=== PATIENT | male | born 1975 | race Caucasian/White ===

== ENCOUNTER 2018-12-09 20:43 | Emergency (ER) | payer OTHER ==
[~2018-12-09] VITALS: Ht 182.9 cm; Wt 97.5 kg
[2018-12-09] MEDS ORDERED: VENTOLIN HFA 1818 GM INH (21:39)
[2018-12-09] MEDS ORDERED: PREDNISONE 20 M20 MG PO (21:39)
[2018-12-09 22:10] VITALS: BP 132/72
== END 2018-12-09 22:12 | disposition home or self-care (01) ==
LOC: ER 20:43
DX: J45.909 Unspecified asthma, uncomplicated (principal)